=== PATIENT | female | born 2000 | race Caucasian/White ===

== ENCOUNTER 2019-11-16 14:38 | Emergency (ER) | payer OTHER, SELFPAY ==
--- NOTE | 2019-11-16 15:54 | RAD REPORT ---
EXAM DESCRIPTION: CT - Head Brain Wo Cont - 11/16/2019 3:44 pm CLINICAL HISTORY: DIZZINESS Headache, drowsiness COMPARISON: No comparisons TECHNIQUE: All CT scans are performed using dose optimization technique as appropriate and may inclu de automated exposure control or mA/KV adjustment according to patient size. FINDINGS: No intracranial hemorrhage, hydrocephalus or extra-axial fluid collection.No areas of brai n edema or evidence of midline shift. The paranasal sinuses and mastoids are clear. The calvarium is intact. IMPRESSION: No acute intracranial abnormality.
[2019-11-16 16:19] LABS: Urine Blood NEGATIVE (NEG); Urine Glucose NEGATIVE (NEG); Urine Protein NEGATIVE (NEG); Urine Specific Gravity 1.025 (1.005-1.030); Urine pH 5.5 (5.0-7.0)
--- NOTE | 2019-11-16 16:33 | EDPHYS ---
Physician Documentation [facility] Name: Elizabeth Kelly Age: 19 yrs Sex: Female : 2000 Arrival Date: 11/16/2019 Time: 14:42 Bed 15 Private MD: ED Physician Lewis Callahan HPI: 11/15 16:23 This 19 yrs old Female presents to ER via Ambulatory with complaints of kb Dizziness. 16:20 Pt reports she fell a week ago and hit the back of her head. States she had a bump on kb her head that day, but it went away by that night. States she still gets dizzy when she looks in different ways or changes positions with intermittent nausea so she wanted to make sure everything was ok. 16:23 The patient has not experienced similar symptoms in the past. The patient has not kb recently seen a physician. 16:24 The patient presents with dizziness. Onset: The symptoms/episode began/occurred 1 kb week(s) ago. Context: occurred outdoors, [place]. Modifying factors: The symptoms are alleviated by nothing, the symptoms are aggravated by movement of head, standing up, changing position. Associated signs and symptoms: Pertinent positives: nausea, Pertinent negatives: abdominal pain, agitation, ataxia, blurred vision, chest pain, combativeness, confusion, diaphoresis, focal weakness, head injury, headache, near-syncope, numbness, palpitations, , seizure, shortness of breath, syncope, tingling, vomiting. Severity of symptoms: At their worst the symptoms were moderate in the emergency department the symptoms are unchanged. Patient's baseline: Neuro: alert and fully oriented, Motor: no deficits, Ambulation: walks without assistance, Speech: normal. 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 - Social history:: Smoking status: Patient denies any tobacco usage or history of. ROS: 16:14 Constitutional: Negative for fever, chills, and weight loss, Cardiovascular: Negative kb for chest pain, palpitations, and edema, Respiratory: Negative for shortness of breath, cough, wheezing, and pleuritic chest pain, Abdomen/GI: Negative for abdominal pain, vomiting, diarrhea, and constipation. +nausea Back: Negative for injury and pain, MS/Extremity: Negative for injury and deformity, Skin: Negative for injury, rash, and discoloration. 16:14 Neuro: Positive for dizziness, Negative for altered mental status, gait disturbance, headache, hearing loss, loss of consciousness, numbness, seizure activity, speech changes, syncope, near syncope, tingling, tinnitus, tremor, visual changes, weakness. Exam: 16:14 Constitutional: This is a well developed, well nourished patient who is awake, alert, kb and in no acute distress. Head/Face: Normocephalic, atraumatic. Eyes: Pupils equal round and reactive to light, extra-ocular motions intact. Lids and lashes normal. Conjunctiva and sclera are non-icteric and not injected. Cornea within normal limits. Periorbital areas with no swelling, redness, or edema. Chest/axilla: Normal chest wall appearance and motion. Nontender with no deformity. No lesions are appreciated. Cardiovascular: Regular rate and rhythm with a normal S1 and S2. No gallops, murmurs, or rubs. Normal PMI, no JVD. No pulse deficits. Respiratory: Lungs have equal breath sounds bilaterally, clear to auscultation and percussion. No rales, rhonchi or wheezes noted. No increased work of breathing, no retractions or nasal flaring. Abdomen/GI: Soft, non-tender, with normal bowel sounds. No distension or tympany. No guarding or rebound. No evidence of tenderness throughout. Back: No spinal tenderness. No costovertebral tenderness. Full range of motion. Skin: Warm, dry with normal turgor. Normal color with no rashes, no lesions, and no evidence of cellulitis. MS/ Extremity: Pulses equal, no cyanosis. Neurovascular intact. Full, normal range of motion. Neuro: Awake and alert, GCS 15, oriented to person, place, time, and situation. Cranial nerves II-XII grossly intact. Motor strength 5/5 in all extremities. Sensory grossly intact. Cerebellar exam normal. Normal gait. Vital Signs: 14:53 BP 123 / 95; Pulse 91; Resp 18 S; Temp 98.7(TE); Pulse Ox 99% on R/A; Weight 58.97 kg ca1 (R); Height 5 ft. 2 in. (157.48 cm) (R); 15:38 BP 120 / 75; Pulse 73; Resp 16; Temp 99.5(TE); Pulse Ox 100% ; Pain 0/10; ks7 16:37 BP 127 / 87 LA Supine (auto/reg); Pulse 72; Resp 18; Pulse Ox 100% on R/A; dh4 16:37 BP 125 / 89 LA Sitting (auto/reg); Pulse 80; Resp 18; Pulse Ox 100% on R/A; dh4 16:37 BP 115 / 75 LA Standing (auto/reg); Pulse 92; Resp 18; Pulse Ox 98% on R/A; dh4 17:10 BP 113 / 64; Pulse 66; Resp 18; Temp 98.6(TE); Pulse Ox 99% ; Pain 0/10; ks7 14:53 Body Mass Index 23.78 (58.97 kg, 157.48 cm) ca1 MDM: 15:07 Patient medically screened. kb 16:19 Data reviewed: vital signs, nurses notes. Data interpreted: Pulse oximetry: on room air kb is 100 %. Interpretation: normal. Counseling: I had a detailed discussion with the patient and/or guardian regarding: the historical points, exam findings, and any diagnostic results supporting the discharge/admit diagnosis, radiology results, the need for outpatient follow up, a family practitioner, to return to the emergency department if symptoms worsen or persist or if there are any questions or concerns that arise at home. 11/15 16:03 Order name: Urine Dipstick--Ancillary (enter results); Complete Time: 16:26 bd 11/15 15:07 Order name: CT Head Brain wo Cont; Complete Time: 15:56 kb 11/15 16:02 Order name: Urine Dipstick-Ancillary (obtain specimen); Complete Time: 16:16 kb 11/15 16:02 Order name: Orthostatics; Complete Time: 17:10 kb Administered Medications: No medications were administered Disposition: 18:18 Co-signature as Attending Physician, Lewis Callahan MD. rn Disposition: 11/16/19 16:32 Discharged to Home. Impression: Dizziness and giddiness, Superficial injury of head. - Condition is Stable. - Discharge Instructions: Concussion, Adult, [id number], Head Injury, Adult, [id number]. - Medication Reconciliation Form, Thank You Letter, Antibiotic Education, Prescription Opioid Use, Work release form form. - Follow up: Emergency Department; When: As needed; Reason: Worsening of condition. Follow up: Private Physician; When: 2 - 3 days; Reason: Recheck today's complaints, Continuance of care, Re-evaluation by your physician. Signatures: Dispatcher [employer] EDMariana Velazquez, MEAT AND POULTRY INSPECTOR-C MEAT AND POULTRY INSPECTOR-CkLewis Gibbs MD MD rn Mikaelob, Tiana RN RN ca1 Ivet Rubio RN RN ks7 Corrections: (The following items were deleted from the chart) 17:15 16:32 11/16/2019 16:32 Discharged to Home. Impression: Dizziness and giddiness; ks7 Superficial injury of head. Condition is Stable. Forms are Medication Reconciliation Form, Thank You Letter, Antibiotic Education, Prescription Opioid Use. Follow up: Emergency Department; When: As needed; Reason: Worsening of condition. Follow up: Private Physician; When: 2 - 3 days; Reason: Recheck today's complaints, Continuance of care, Re-evaluation by your physician. kb
--- NOTE | 2019-11-16 16:33 | ER ---
Nurse's Notes [facility] Name: Elizabeth Kelly Age: 19 yrs Sex: Female : 2000 Arrival Date: 11/16/2019 Time: 14:42 Bed 15 Private MD: Diagnosis: Dizziness and giddiness;Superficial injury of head Presentation: 11/15 14:53 Chief complaint: Patient states: Fell and hit back of head a week ago, reports LOC. ca1 Vomited x 1 immediately regained consciousness. Did not seek medical consult. 2-3 days ago, nausea x dizziness started. Gait disturbance, head spinning. Coronavirus screen: Patient denies a cough. Patient denies shortness of breath or difficulty breathing. Patient denies measured and/or subjective temperature greater than 100.4F prior to today's visit. Patient denies travel on a cruise ship or to a country the [facility] currently lists as an affected area. Patient denies contact with known and/or suspected case of COVID-19. Proceed with normal triage. Ebola Screen: Patient negative for fever greater than or equal to 101.5 degrees Fahrenheit, and additional compatible Ebola Virus Disease symptoms Patient denies exposure to infectious person. Patient denies travel to an Ebola-affected area in the 21 days before illness onset. No symptoms or risks identified at this time. Initial Sepsis Screen: Does the patient meet any 2 criteria? No. Patient's initial sepsis screen is negative. Does the patient have a suspected source of infection? No. Patient's initial sepsis screen is negative. Risk Assessment: Do you want to hurt yourself or someone else? Patient reports no desire to harm self or others. Onset of symptoms was November 16, 2019. 14:53 Method Of Arrival: Ambulatory ca1 14:53 Acuity: ANTIONE 4 ca1 Triage Assessment: 15:31 General: Appears in no apparent distress. Behavior is calm, cooperative. 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 - Social history:: Smoking status: Patient denies any tobacco usage or history of. Screenin:38 Abuse screen: Denies threats or abuse. Denies injuries from another. Nutritional ks7 screening: No deficits noted. Tuberculosis screening: No symptoms or risk factors identified. Fall Risk None identified. Assessment: 15:39 General: Appears in no apparent distress. Behavior is calm, cooperative. Pain: Denies ks7 pain. Neuro: Reports dizziness, since pt states she fainted and fell in [place] last week d/t heat. She thought she was ok but in the last few days pt states she has dizziness when standing or if she moves her head too fast or looks down. pt denies MOJICA or pain. c/o occasional nausea. Vital Signs: 14:53 BP 123 / 95; Pulse 91; Resp 18 S; Temp 98.7(TE); Pulse Ox 99% on R/A; Weight 58.97 kg ca1 (R); Height 5 ft. 2 in. (157.48 cm) (R); 15:38 BP 120 / 75; Pulse 73; Resp 16; Temp 99.5(TE); Pulse Ox 100% ; Pain 0/10; ks7 16:37 BP 127 / 87 LA Supine (auto/reg); Pulse 72; Resp 18; Pulse Ox 100% on R/A; dh4 16:37 BP 125 / 89 LA Sitting (auto/reg); Pulse 80; Resp 18; Pulse Ox 100% on R/A; dh4 16:37 BP 115 / 75 LA Standing (auto/reg); Pulse 92; Resp 18; Pulse Ox 98% on R/A; dh4 17:10 BP 113 / 64; Pulse 66; Resp 18; Temp 98.6(TE); Pulse Ox 99% ; Pain 0/10; ks7 14:53 Body Mass Index 23.78 (58.97 kg, 157.48 cm) ca1 ED Course: 14:42 Patient arrived in ED. mr 14:57 Triage completed. ca1 14:58 Arm band placed on right wrist. ca1 15:07 Mairana Washburn F[facility]-C [facility]. kb 15:07 Lewis Callahan MD is Attending Physician. kb 15:31 Ivet Rubio, SINDHU is Primary Nurse. ks7 15:[address] ks7 15:38 Patient has correct armband on for positive identification. Bed in low position. Call ks7 light in reach. Side rails up X2. 15:38 No provider procedures requiring assistance completed. ks7 15:45 CT Head Brain wo Cont In Process Unspecified. EDMS 16:16 Urine Dipstick--Ancillary (enter results) Sent. ks7 17:11 Patient did not have IV access during this emergency room visit. ks7 Administered Medications: No medications were administered Outcome: 16:32 Discharge ordered by . olivier 17:11 Discharged to home ambulatory. ks7 17:11 Condition: stable 17:11 Discharge instructions given to patient, Instructed on discharge instructions, Demonstrated understanding of instructions. 17:15 Patient left the ED. ks7 Signatures: Dispatcher [employer] EDMS Mariana Washburn, DIVORCE LAWYER-C DIVORCE LAWYER-Ckb GarciaEdelmira mr Poonam, Tiana, RN RN ca1 Christopher Damon [facility] Ivet Rubio, SINDHU RN ks7 Corrections: (The following items were deleted from the chart) 14:58 14:58 LMP 10/2019 ca1 ca1
[2019-11-17 07:37] VITALS: BP 113/64; TEMP 98.6; O2SAT 99
== END 2019-11-16 17:15 | disposition home or self-care (01) ==
LOC: ER 14:38
DX: S00.90XA Unspecified superficial injury of unspecified part of head, initial encounter (principal); W19.XXXA Unspecified fall, initial encounter; Y93.9 Activity, unspecified; Y92.9 Unspecified place or not applicable
CPT/HCPCS: 70450; 81003; 99284

== ENCOUNTER 2021-02-18 12:38 | Emergency (ER) | payer SELFPAY ==
[2021-02-18 14:00] LABS: Urine Blood Negative (Negative); Urine Glucose Negative (Negative); Urine Protein Negative (Negative)
[2021-02-18] MEDS ORDERED: LORazepam 2 MG/ML VIAL ONE (14:35)
[2021-02-18] MEDS ORDERED: ASPIRIN 81 MG CHEWABLE TABLET ONE (14:35)
[2021-02-18] MEDS ORDERED: FAMOTIDINE 20 MG TAB ONE (14:36)
[2021-02-18] MEDS ORDERED: CASIRIVIMAB/IMDEVIMAB 10 ML VIAL ONE (14:36)
[2021-02-18] MEDS ORDERED: AZITHROMYCIN 250 MG TAB ONE (14:37)
[2021-02-18 14:38] LABS: Absolute Lymphocytes (CBC) 1.2 K/uL (0.7-4.9); Basophils % 0.4 % (0-1.3); Hematocrit 42.7 % (36.0-45.0); Lymphocytes % 25.5 % (15.3-44.8); MPV 9.3 fL (7.6-11.3); RBC Red Blood Cell Count 5.11 M/uL (3.86-4.86)
[2021-02-18] MEDS ORDERED: NA CHLORIDE 0.9% 500 ML ONE (14:48)
[2021-02-18] MEDS ORDERED: NA CHLORIDE 0.9% 1,000 ML ONE (14:48)
[2021-02-18 14:50] LABS: ALT/SGPT 35 U/L (12-78); AST/SGOT 20 U/L (15-37); Albumin 4.6 g/dL (3.4-5.0); Alkaline Phosphatase 64 U/L (45-117); BUN Blood Urea Nitrogen 8 mg/dL (7-18); Bicarbonate 24 mmol/L (21-32); Bilirubin Total 0.3 mg/dL (0.2-1.0); Glucose Level 108 mg/dL (74-106); Potassium 3.7 mmol/L (3.5-5.1); Protein, Total 8.9 g/dL (6.4-8.2); Sodium Level 143 mmol/L (136-145)
--- NOTE | 2021-02-18 15:14 | RAD REPORT ---
EXAM DESCRIPTION: RAD - Chest Single View - 02/18/2021 2:31 pm CLINICAL HISTORY: Congestion;Dyspnea Chest pain. COMPARISON: <Comparisons> FINDINGS: Portable technique limits examination quality. The lungs are grossly clear. The heart is normal in size. No displaced fractures. IMPRESSION: No acute intrathoracic process suspected.
[2021-02-18] MEDS ORDERED: NA CHLORIDE 0.9% 250 ML ONE (15:17)
--- NOTE | 2021-02-18 15:46 | EDPHYS ---
Physician Documentation [facility] Name: Elizabeth Kelly Age: 21 yrs Sex: Female : 2000 Arrival Date: 02/18/2021 Time: 12:40 Bed 4 Private MD: ED Physician Mike Kuhn HPI: 02/18 15:40 This 21 yrs old Female presents to ER via Ambulatory with complaints of josesito Anxiety, covid+. 15:40 The patient has shortness of breath at rest, with light activity. Onset: The josesito symptoms/episode began/occurred 3 day(s) ago. Duration: The symptoms are continuous, and are steadily getting worse. The patient's shortness of breath is aggravated by coughing, is alleviated by rest. covid positive 4 days. Associated signs and symptoms: Pertinent positives: non-productive cough, nausea. Severity of symptoms: At their worst the symptoms were mild in the emergency department the symptoms are unchanged. The patient has not experienced similar symptoms in the past. Historical: - Allergies: 12:53 No Known Allergies; ll1 - PMHx: 12:53 Anxiety; concussion; ll1 - Immunization history:: Client reports having NOT received the Covid vaccine. - Social history:: Smoking status: Patient denies any tobacco usage or history of. - Family history:: not pertinent. ROS: 15:40 Constitutional: Negative for fever, chills, and weight loss, Eyes: Negative for injury, josesito pain, redness, and discharge, ENT: Negative for injury, pain, and discharge, Neck: Negative for injury, pain, and swelling, Cardiovascular: Negative for chest pain, palpitations, and edema, Abdomen/GI: Negative for abdominal pain, nausea, vomiting, diarrhea, and constipation, Back: Negative for injury and pain, : Negative for injury, bleeding, discharge, and swelling, MS/Extremity: Negative for injury and deformity, Skin: Negative for injury, rash, and discoloration, Neuro: Negative for headache, weakness, numbness, tingling, and seizure, Psych: Negative for depression, anxiety, suicide ideation, homicidal ideation, and hallucinations, Allergy/Immunology: Negative for hives, rash, and allergies, Endocrine: Negative for neck swelling, polydipsia, polyuria, polyphagia, and marked weight changes, Hematologic/Lymphatic: Negative for swollen nodes, abnormal bleeding, and unusual bruising. 15:40 Respiratory: Positive for cough, "sounds productive". Exam: 15:40 Constitutional: This is a well developed, well nourished patient who is awake, alert, josesito and in no acute distress. Head/Face: Normocephalic, atraumatic. Eyes: Pupils equal round and reactive to light, extra-ocular motions intact. Lids and lashes normal. Conjunctiva and sclera are non-icteric and not injected. Cornea within normal limits. Periorbital areas with no swelling, redness, or edema. ENT: Nares patent. No nasal discharge, no septal abnormalities noted. Tympanic membranes are normal and external auditory canals are clear. Oropharynx with no redness, swelling, or masses, exudates, or evidence of obstruction, uvula midline. Mucous membranes moist. Neck: Trachea midline, no thyromegaly or masses palpated, and no cervical lymphadenopathy. Supple, full range of motion without nuchal rigidity, or vertebral point tenderness. No Meningismus. Chest/axilla: Normal chest wall appearance and motion. Nontender with no deformity. No lesions are appreciated. Cardiovascular: Regular rate and rhythm with a normal S1 and S2. No gallops, murmurs, or rubs. Normal PMI, no JVD. No pulse deficits. Respiratory: Lungs have equal breath sounds bilaterally, clear to auscultation and percussion. No rales, rhonchi or wheezes noted. No increased work of breathing, no retractions or nasal flaring. Abdomen/GI: Soft, non-tender, with normal bowel sounds. No distension or tympany. No guarding or rebound. No evidence of tenderness throughout. Back: No spinal tenderness. No costovertebral tenderness. Full range of motion. Skin: Warm, dry with normal turgor. Normal color with no rashes, no lesions, and no evidence of cellulitis. MS/ Extremity: Pulses equal, no cyanosis. Neurovascular intact. Full, normal range of motion. Neuro: Awake and alert, GCS 15, oriented to person, place, time, and situation. Cranial nerves II-XII grossly intact. Motor strength 5/5 in all extremities. Sensory grossly intact. Cerebellar exam normal. Normal gait. Psych: Awake, alert, with orientation to person, place and time. Behavior, mood, and affect are within normal limits. 15:40 Musculoskeletal/extremity: DVT Exam: No signs of deep vein thrombosis. no pain, no swelling, no tenderness, negative Homans' sign noted on exam, no appreciated bluish discoloration, no erythema, no increased warmth. Vital Signs: 12:51 BP 129 / 90; Pulse 85; Resp 16; Temp 98.3; Pulse Ox 100% on R/A; Weight 58.97 kg; ll1 Height 5 ft. 2 in. (157.48 cm); Pain 0/10; 14:28 BP 123 / 90; Pulse 89; Resp 20; Pulse Ox 100% ; ch5 15:43 BP 100 / 70; Pulse 73; Resp 18; Pulse Ox 100% ; ch5 16:29 BP 100 / 56; Pulse 86; Resp 14; Pulse Ox 100% on R/A; Pain 0/10; tw5 12:51 Body Mass Index 23.78 (58.97 kg, 157.48 cm) ll1 MDM: 13:06 Patient medically screened. josesito 15:42 Differential diagnosis: Anemia Anxiety Reaction asthma, Bronchitis CHF exacerbation, josesito Chronic Obstructive Pulmonary Disease Myocardial Infarction. Antibiotic administration: The patient is discharged and will get outpatient antibiotics, Zithromax. Differential Diagnosis. The patient's Wells Deep Vein Thrombosis Score was calculated as follows: Total Score: 0-2 Pts- Low Risk. The patient's pulmonary embolism risk score was calculated as follows: Total Score: 0-2 points. This patient was found to be at low risk for a pulmonary embolism by using the Well's assessment criteria. Immunization status:. Data reviewed: vital signs, nurses notes, lab test result(s), radiologic studies, plain films. Data interpreted: lunchroom monitor: rate is 89 beats/min, rhythm is regular, Pulse oximetry: on room air is 100 %. Test interpretation: by ED physician or midlevel provider: plain radiologic studies. Counseling: I had a detailed discussion with the patient and/or guardian regarding: the historical points, exam findings, and any diagnostic results supporting the discharge/admit diagnosis, lab results, radiology results, the need for outpatient follow up, for definitive care, a family practitioner, a boardmarker. 02/18 13:29 Order name: CBC with Diff; Complete Time: 14:46 [facility] 02/18 13:29 Order name: Comprehensive Metabolic Panel; Complete Time: 15:06 josesito 02/18 13:29 Order name: D-Dimer; Complete Time: 14:46 [facility] 02/18 13:29 Order name: Chest Single View XRAY; Complete Time: 15:39 [facility] 02/18 13:59 Order name: Urine Dipstick-Ancillary; Complete Time: 14:46 EDMS 02/18 14:02 Order name: Urine --Ancillary (enter results) 02/18 13:29 Order name: Urine Dipstick-Ancillary (obtain specimen); Complete Time: 14:02 [facility] 02/18 13:29 Order name: Urine Test (obtain specimen); Complete Time: 14:02 [facility] Administered Medications: 14:21 Drug: Pepcid (famotidine) 40 mg Route: PO; ch5 16:28 Follow up: Response: No adverse reaction tw5 14:21 Drug: Aspirin 162 mg Route: PO; ch5 16:28 Follow up: Response: No adverse reaction tw5 14:21 Drug: Zithromax (azithromycin) 500 mg Route: PO; ch5 16:28 Follow up: Response: No adverse reaction tw5 14:21 Drug: Ativan (LORazepam) 0.5 mg Route: IVP; Site: right antecubital; ch5 16:28 Follow up: Response: No adverse reaction tw5 14:27 Drug: NS 0.9% 500 ml Route: IV; Rate: bolus; Site: right antecubital; ch5 16:28 Follow up: Response: No adverse reaction; IV Status: Completed infusion tw5 15:29 Drug: Casirivimab-Imdevimab Dose Pack 120 mg/mL-120 mg/mL (EUA) 1 vials {Note: only ch5 600mg in vial. Told to infuse lucas Rodriguez} Route: IV; Rate: per protocol; Site: right antecubital; 16:28 Follow up: Response: No adverse reaction; IV Status: Completed infusion tw5 Disposition Summary: 02/18/21 15:45 Discharge Ordered Location: Home josesito Problem: new josesito Symptoms: have improved josesito Condition: Stable josesito Diagnosis - Acute upper respiratory infection, unspecified josesito - Coronavirus infection, unspecified josesito - Pneumonia due to SARS-associated coronavirus josesito - Cough josesito Followup: josesito - With: Private Physician - When: 2 - 3 days - Reason: Recheck today's complaints, Continuance of care, Re-evaluation by your physician Followup: josesito - With: Arvind Mandujano MD - When: 2 - 3 days - Reason: Recheck today's complaints, Continuance of care, Re-evaluation by your physician Discharge Instructions: - Discharge Summary Sheet [facility] - Cool Mist Vaporizer josesito - Upper Respiratory Infection, Adult, Araf-oa-Cytu josesito - Cough, Adult, Zdjk-op-Mrul josesito - Aspirin and Your Heart josesito - Cough, Adult josesito - COVID-19 josesito - COVID-19 Frequently Asked Questions [facility] - 10 Things You Can Do to Manage Your COVID-19 Symptoms at Home - [facility] Forms: - Medication Reconciliation Form josesito - Thank You Letter josesito - Antibiotic Education [facility] - Prescription Opioid Use [facility] Prescriptions: - ivermectin 3 mg Oral tablet - take 4 tablet by ORAL route once daily; 12 tablet; Refills: 0, Product [facility] Selection Permitted - Pepcid 20 mg Oral Tablet - take 1 tablet by ORAL route every 12 hours for 30 days; 60 tablet; Refills: 0, [facility] Product Selection Permitted - Singulair 5 mg Oral Tablet - take 1 tablet by ORAL route At bedtime; 20 tablet; Refills: 0, Product [facility] Selection Permitted - Zithromax Z-Ray 250 mg Oral Tablet - take 1 tablet by ORAL route as directed for 5 days Day 1 - take two (2) tablets [facility] one time. Day 2, 3, 4 , 5 take one (1) tablet once daily.; 6 tablet; Refills: 0, Product Selection Permitted Signatures: Dispatcher [employer] Mike Taylor MD MD cha Lewis, Lynsay RN RN ll1 Marino Bowden RN RN ch5 Arlyn Alejandra 5
--- NOTE | 2021-02-18 15:46 | ER ---
Nurse's Notes [facility] Name: Elizabeth Kelly Age: 21 yrs Sex: Female : 2000 Arrival Date: 02/18/2021 Time: 12:40 Bed 4 Private MD: Diagnosis: Acute upper respiratory infection, unspecified;Coronavirus infection, unspecified;Pneumonia due to SARS-associated coronavirus;Cough Presentation: 02/18 12:51 Chief complaint: Patient states: Covid symptoms began 02/13/21. Test positive for covid ll1 on . SOB off/on. States she feels anxious when the SOB gets worse. Coronavirus screen: Vaccine status: Patient reports being unvaccinated. Client denies travel out of the [place] in the last 14 days. cough unrelated to allergies, difficulty breathing, fatigue, shortness of breath, loss of taste or smell, Client presents with at least one sign or symptom that may indicate coronavirus-19. Standard/surgical mask placed on the client. Ebola Screen: Patient denies travel to an Ebola-affected area in the 21 days before illness onset. Initial Sepsis Screen: Does the patient meet any 2 criteria? No. Patient's initial sepsis screen is negative. Does the patient have a suspected source of infection? Yes: Productive cough/pneumonia. Risk Assessment: Do you want to hurt yourself or someone else? Patient reports no desire to harm self or others. Onset of symptoms was February 13, 2021. 12:51 Method Of Arrival: Ambulatory ll1 12:51 Acuity: ANTIONE 4 ll1 14:11 Acuity: ANTIONE 3 iw Historical: - Allergies: 12:53 No Known Allergies; ll1 - PMHx: 12:53 Anxiety; concussion; ll1 - Immunization history:: Client reports having NOT received the Covid vaccine. - Social history:: Smoking status: Patient denies any tobacco usage or history of. - Family history:: not pertinent. Screenin:02 Abuse screen: Denies threats or abuse. Denies injuries from another. Nutritional ch5 screening: No deficits noted. Tuberculosis screening: No symptoms or risk factors identified. Fall Risk None identified. Assessment: 14:02 Reassessment: Feeling anxious. General: Appears uncomfortable, Behavior is anxious, ch5 Reports. Pain: Denies pain. 16:29 Reassessment: Patient states feeling better. Patient states symptoms have improved. tw5 Vital Signs: 12:51 BP 129 / 90; Pulse 85; Resp 16; Temp 98.3; Pulse Ox 100% on R/A; Weight 58.97 kg; ll1 Height 5 ft. 2 in. (157.48 cm); Pain 0/10; 14:28 BP 123 / 90; Pulse 89; Resp 20; Pulse Ox 100% ; ch5 15:43 BP 100 / 70; Pulse 73; Resp 18; Pulse Ox 100% ; ch5 16:29 BP 100 / 56; Pulse 86; Resp 14; Pulse Ox 100% on R/A; Pain 0/10; tw5 12:51 Body Mass Index 23.78 (58.97 kg, 157.48 cm) ll1 ED Course: 12:40 Patient arrived in ED. as 12:53 Triage completed. ll1 12:54 Arm band placed on. ll1 13:06 Mike Kuhn MD is Attending Physician. josesito 13:13 Marino Bowden RN is Primary Nurse. ch5 14:02 Bed in low position. Call light in reach. Side rails up X2. ch5 14:02 No provider procedures requiring assistance completed. Inserted saline lock: 20 gauge ch5 in right antecubital area, using aseptic technique. 14:31 Chest Single View XRAY In Process Unspecified. EDMS 15:44 Arvind Mandujano MD is Referral Physician. josesito 18:42 IV discontinued, intact. ch5 Administered Medications: 14:21 Drug: Pepcid (famotidine) 40 mg Route: PO; ch5 16:28 Follow up: Response: No adverse reaction tw5 14:21 Drug: Aspirin 162 mg Route: PO; ch5 16:28 Follow up: Response: No adverse reaction tw5 14:21 Drug: Zithromax (azithromycin) 500 mg Route: PO; ch5 16:28 Follow up: Response: No adverse reaction tw5 14:21 Drug: Ativan (LORazepam) 0.5 mg Route: IVP; Site: right antecubital; ch5 16:28 Follow up: Response: No adverse reaction tw5 14:27 Drug: NS 0.9% 500 ml Route: IV; Rate: bolus; Site: right antecubital; ch5 16:28 Follow up: Response: No adverse reaction; IV Status: Completed infusion tw5 15:29 Drug: Casirivimab-Imdevimab Dose Pack 120 mg/mL-120 mg/mL (EUA) 1 vials {Note: only ch5 600mg in vial. Told to infuse lucas GEIGER .} Route: IV; Rate: per protocol; Site: right antecubital; 16:28 Follow up: Response: No adverse reaction; IV Status: Completed infusion tw5 Outcome: 15:45 Discharge ordered by MD. bellamy 18:42 Discharged to home ambulatory. [facility] 18:42 Condition: stable 18:42 Discharge instructions given to patient. 18:43 Patient left the ED. 5 Signatures: Dispatcher [employer] EDMS Mike Kuhn MD MD cha Martinez, Amelia as Williams, Irene, RN RN Sheri Mi RN RN [facility] Marino Bowden RN RN 5 Arlyn Alejandra tw5 Corrections: (The following items were deleted from the chart) 16:02 15:00 Casirivimab-Imdevimab Dose Pack 120 mg/mL-120 mg/mL (EUA) 1 vials IV at per 5 protocol in right antecubital ch5
[2021-02-18 19:16] VITALS: TEMP 98.3; O2SAT 100
[2021-02-18 19:20] VITALS: BP 100/56
== END 2021-02-18 18:43 | disposition home or self-care (01) ==
LOC: ER 12:38
DX: U07.1 COVID-19 (principal); J12.82 Pneumonia due to coronavirus disease 2019; J12.81 Pneumonia due to SARS-associated coronavirus; R05.9 Cough, unspecified; J06.9 Acute upper respiratory infection, unspecified
CPT/HCPCS: 36415; 71045; 80053; 81003; 81025; 85025; 85379; 96361; 96365; 96375; 99284; J7030; J7040; J7050; M0243

== ENCOUNTER 2021-05-17 18:09 | Emergency (ER) | payer SELFPAY ==
[2021-05-17] MEDS ORDERED: NA CHLORIDE 0.9% 1,000 ML ONE ×2 (18:42→19:57)
[2021-05-17] MEDS ORDERED: ONDANSETRON 4 MG/2 ML VIAL ONE (18:42)
[2021-05-17 19:05] LABS: Urine Blood Negative (Negative); Urine Glucose Negative (Negative); Urine Protein Negative (Negative); Urine Specific Gravity 1.015 (1.005-1.030)
[2021-05-17 19:23] LABS: Absolute Lymphocytes (CBC) 0.8 K/uL (0.7-4.9); Hematocrit 41.3 % (36.0-45.0); Lymphocytes % 7.4 % (15.3-44.8); MPV 8.7 fL (7.6-11.3); RBC Red Blood Cell Count 4.84 M/uL (3.86-4.86)
[2021-05-17 19:26] LABS: Urine Specific Gravity/Preg 1.015 (1.005-1.030)
--- NOTE | 2021-05-17 19:50 | RAD REPORT ---
EXAM DESCRIPTION: US - Transvaginal OB - 05/17/2021 7:22 pm CLINICAL HISTORY: ABD CRAMPING, COMPARISON: <Comparisons> FINDINGS: A single gestational sac is seen within the uterus. The shape of the sac is within normal limits for gestational age. Within the sac is a single pole with crown-rump length of 3 mm, cor relating to estimated gestational age of 6 weeks 1 day. Estimated date of delivery is 01/09/2022. Heart rate is 110 BPM. 16 mm subchorionic bleed seen along the inferior margin of the sac. The placenta is not yet developed due to early gestational age. The maternal adnexa and ovaries are within normal limits. Normal Doppler blood flow was demonstrated to both ovaries. IMPRESSION: Single live early intrauterine gestation with estimated gestational age of 6 weeks 1 day , JOAN 01/09/2022. 16 mm subchorionic bleed along the inferior margin of the sac.
--- NOTE | 2021-05-17 20:08 | ER ---
Nurse's Notes [facility] Name: Elizabeth Kelly Age: 21 yrs Sex: Female : 2000 Arrival Date: 05/17/2021 Time: 18:14 Bed 20 Private MD: Diagnosis: Vomiting;Vomiting of , unspecified;Less than 8 weeks gestation of ;Other hemorrhage in early -16 mm subchorionic bleed Presentation: 05/17 18:25 Chief complaint: Patient states: 7 weeks . N/V for 3 days. Slight ll1 cough/congestion. G1, P0. Coronavirus screen: Vaccine status: Patient reports being unvaccinated. Client denies travel out of the [place] in the last 14 days. congestion, cough unrelated to allergies, fever, headache, nausea, vomiting. Client presents with at least one sign or symptom that may indicate coronavirus-19. Standard/surgical mask placed on the client. Ebola Screen: Patient denies travel to an Ebola-affected area in the 21 days before illness onset. Initial Sepsis Screen: Does the patient meet any 2 criteria? No. Patient's initial sepsis screen is negative. Does the patient have a suspected source of infection? Yes: Acute abdominal pain. Risk Assessment: Do you want to hurt yourself or someone else? Patient reports no desire to harm self or others. Onset of symptoms was May 15, 2021. 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 - Social history:: Smoking status: Patient denies any tobacco usage or history of. - Family history:: not pertinent. Screenin:45 Abuse screen: Denies threats or abuse. Denies injuries from another. Nutritional eo2 screening: No deficits noted. Tuberculosis screening: No symptoms or risk factors identified. Fall Risk None identified. Assessment: 18:45 General: Appears in no apparent distress. Behavior is calm, cooperative. eo2 18:45 Pain: Denies pain. Neuro: No deficits noted. Level of Consciousness is awake, alert, eo2 obeys commands, Oriented to person, place, time, situation. Cardiovascular: No deficits noted. Denies chest pain, shortness of breath. Respiratory: No deficits noted. Denies cough, shortness of breath. GI: Abdomen is flat, non-distended, Bowel sounds present X 4 quads. Reports nausea, vomiting, since 3 days Patient currently denies vag bleeding. : No deficits noted. Denies burning with urination. 19:00 General: Appears in no apparent distress. uncomfortable, Behavior is calm, cooperative. ll3 Pain: Denies pain. Neuro: No deficits noted. Level of Consciousness is awake, alert, obeys commands, Oriented to person, place, time, situation. Cardiovascular: No deficits noted. Patient's skin is warm and dry. Respiratory: No deficits noted. Respiratory effort is even, unlabored, Respiratory pattern is regular, symmetrical. GI: Abdomen is flat, non-distended, Bowel sounds present X 4 quads. Reports nausea, Patient currently denies vomiting. : No deficits noted. Reports urinary frequency, Denies burning with urination. Derm: Skin is pink, warm \T\ dry. 20:29 Reassessment: ED provider discharged pt prior to completion of diagnostic results and bb medication administration. Vital Signs: 18:25 BP 130 / 81; Pulse 100; Resp 18; Temp 99.9; Pulse Ox 100% ; Weight 61.23 kg; Height 5 ll1 ft. 2 in. (157.48 cm); Pain 5/10; 18:30 BP 125 / 82; Pulse 103; Resp 17; Pulse Ox 100% ; Pain 0/10; eo2 19:00 BP 141 / 86; Pulse 89; Resp 15; Pulse Ox 100% on R/A; ll3 20:00 BP 120 / 80; Pulse 89; Resp 15; Pulse Ox 100% on R/A; ll3 18:25 Body Mass Index 24.69 (61.23 kg, 157.48 cm) ll1 ED Course: 18:14 Patient arrived in ED. mr 18:20 Mike Kuhn MD is Attending Physician. [facility] 18:26 Triage completed. ll1 18:27 Arm band placed on Patient placed in an exam room, on a stretcher. ll1 18:28 Rosalia Vasquez, RN is Primary Nurse. eo2 18:45 Patient has correct armband on for positive identification. Pulse ox on. NIBP on. Door eo2 closed. Noise minimized. Warm blanket given. 18:45 No provider procedures requiring assistance completed. eo2 18:50 Inserted saline lock: 20 gauge in right antecubital area, using aseptic technique. eo2 Blood collected. 19:13 Urine --Ancillary (enter results) Sent. eo2 19:13 Abo/rh Typing Sent. eo2 19:13 Basic Metabolic Panel Sent. eo2 19:14 CBC with Diff Sent. eo2 19:14 Quantitative Hcg Sent. eo2 19:19 Report given to Suellen MANLEY. eo2 19:22 US Transvaginal Ob In Process Unspecified. EDMS 20:07 Adriano Umana MD is Referral Physician. josesito 22:18 IV discontinued, intact, bleeding controlled, No redness/swelling at site. Pressure ll3 dressing applied. Administered Medications: 18:50 Drug: NS 0.9% 1000 ml Route: IV; Rate: 1 bolus; Site: right antecubital; eo2 20:31 Follow up: Response: No adverse reaction; IV Status: Completed infusion; IV Intake: ll3 1000ml 18:50 Drug: Zofran (Ondansetron) 4 mg Route: IVP; Site: right antecubital; eo2 20:31 Follow up: Response: No adverse reaction ll3 20:01 Drug: NS 0.9% 1000 ml Route: IV; Rate: 1 bolus; Site: right antecubital; ll3 21:54 Follow up: Response: No adverse reaction; IV Status: Completed infusion; IV Intake: ll3 1000ml 20:31 Drug: Potassium Effervescent Tablet 25 mEq Route: PO; ll3 20:31 Follow up: Response: No adverse reaction ll3 21:54 Drug: RhoGAM (Human) 300 mcg Route: IM; Site: right gluteus; ll3 22:18 Follow up: Response: No adverse reaction ll3 22:05 CANCELLED (Duplicate Order): Potassium Effervescent Tablet 50 mEq PO once; dissolve in bb 4 ounces of water or juice Intake: 20:31 IV: 1000ml; Total: 1000ml. ll3 21:54 IV: 1000ml; Total: 2000ml. ll3 Outcome: 20:07 Discharge ordered by . josesito 22:18 Discharged to home ambulatory, with family. ll3 22:18 Condition: stable 22:18 Discharge instructions given to patient, family, Instructed on discharge instructions, follow up and referral plans. medication usage, Demonstrated understanding of instructions, follow-up care, medications, Prescriptions given X 2. 22:19 Patient left the ED. ll3 Signatures: Dispatcher [employer] EDMS Mike Kuhn MD MD cha Rivera Edelmira mr HernandezHien, RN RN bb Sheri Mi RN RN ll1 Vivien Helm RN RN ll3 Rosalia Vasquez RN RN eo2
--- NOTE | 2021-05-17 20:08 | EDPHYS ---
Physician Documentation [facility] Name: Elizabeth Kelly Age: 21 yrs Sex: Female : 2000 Arrival Date: 05/17/2021 Time: 18:14 Bed 20 Private MD: ED Physician Mike Kuhn HPI: 05/17 18:48 This 21 yrs old Female presents to ER via Ambulatory with complaints of 7 wks josesito , Vomiting. 18:48 The patient presents to the emergency department with nausea, vomiting, that is josesito continuous. Onset: The symptoms/episode began/occurred 2 day(s) ago. Possible causes: . The symptoms are aggravated by nothing. The symptoms are alleviated by nothing. The estimated gestational age is 7 weeks. course: care: none. Associated signs and symptoms: The patient has no apparent associated signs or symptoms. 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 - Social history:: Smoking status: Patient denies any tobacco usage or history of. - Family history:: not pertinent. ROS: 18:48 Constitutional: Negative for fever, chills, and weight loss, Eyes: Negative for injury, josesito pain, redness, and discharge, ENT: Negative for injury, pain, and discharge, Neck: Negative for injury, pain, and swelling, Cardiovascular: Negative for chest pain, palpitations, and edema, Respiratory: Negative for shortness of breath, cough, wheezing, and pleuritic chest pain, Back: Negative for injury and pain, : Negative for injury, bleeding, discharge, and swelling, MS/Extremity: Negative for injury and deformity, Skin: Negative for injury, rash, and discoloration, Neuro: Negative for headache, weakness, numbness, tingling, and seizure, Psych: Negative for depression, anxiety, suicide ideation, homicidal ideation, and hallucinations, Allergy/Immunology: Negative for hives, rash, and allergies, Endocrine: Negative for neck swelling, polydipsia, polyuria, polyphagia, and marked weight changes, Hematologic/Lymphatic: Negative for swollen nodes, abnormal bleeding, and unusual bruising. 18:48 Abdomen/GI: Positive for nausea, vomiting. Exam: 18:48 Constitutional: This is a well developed, well nourished patient who is awake, alert, josesito and in no acute distress. Head/Face: Normocephalic, atraumatic. Eyes: Pupils equal round and reactive to light, extra-ocular motions intact. Lids and lashes normal. Conjunctiva and sclera are non-icteric and not injected. Cornea within normal limits. Periorbital areas with no swelling, redness, or edema. ENT: Nares patent. No nasal discharge, no septal abnormalities noted. Tympanic membranes are normal and external auditory canals are clear. Oropharynx with no redness, swelling, or masses, exudates, or evidence of obstruction, uvula midline. Mucous membranes moist. Neck: Trachea midline, no thyromegaly or masses palpated, and no cervical lymphadenopathy. Supple, full range of motion without nuchal rigidity, or vertebral point tenderness. No Meningismus. Chest/axilla: Normal chest wall appearance and motion. Nontender with no deformity. No lesions are appreciated. Cardiovascular: Regular rate and rhythm with a normal S1 and S2. No gallops, murmurs, or rubs. Normal PMI, no JVD. No pulse deficits. Respiratory: Lungs have equal breath sounds bilaterally, clear to auscultation and percussion. No rales, rhonchi or wheezes noted. No increased work of breathing, no retractions or nasal flaring. Abdomen/GI: Soft, non-tender, with normal bowel sounds. No distension or tympany. No guarding or rebound. No evidence of tenderness throughout. Back: No spinal tenderness. No costovertebral tenderness. Full range of motion. Skin: Warm, dry with normal turgor. Normal color with no rashes, no lesions, and no evidence of cellulitis. MS/ Extremity: Pulses equal, no cyanosis. Neurovascular intact. Full, normal range of motion. Neuro: Awake and alert, GCS 15, oriented to person, place, time, and situation. Cranial nerves II-XII grossly intact. Motor strength 5/5 in all extremities. Sensory grossly intact. Cerebellar exam normal. Normal gait. Psych: Awake, alert, with orientation to person, place and time. Behavior, mood, and affect are within normal limits. Vital Signs: 18:25 BP 130 / 81; Pulse 100; Resp 18; Temp 99.9; Pulse Ox 100% ; Weight 61.23 kg; Height 5 ll1 ft. 2 in. (157.48 cm); Pain 5/10; 18:30 BP 125 / 82; Pulse 103; Resp 17; Pulse Ox 100% ; Pain 0/10; eo2 19:00 BP 141 / 86; Pulse 89; Resp 15; Pulse Ox 100% on R/A; ll3 20:00 BP 120 / 80; Pulse 89; Resp 15; Pulse Ox 100% on R/A; ll3 18:25 Body Mass Index 24.69 (61.23 kg, 157.48 cm) ll1 MDM: 18:20 Patient medically screened. josesito 18:50 Differential diagnosis: viral gastroenteritis, gastroenteritis. Data reviewed: vital josesito signs, nurses notes, lab test result(s), radiologic studies, ultrasound. 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 Counseling: I had a detailed discussion with the patient and/or guardian regarding: the historical points, exam findings, and any diagnostic results supporting the discharge/admit diagnosis, lab results, radiology results, the need for outpatient follow up, for definitive care, an OB/Gyne specialist. 05/17 18:22 Order name: Abo/rh Typing [facility] 05/17 18:22 Order name: Basic Metabolic Panel; Complete Time: 21:54 [facility] 05/17 21:55 Interpretation: Normal except: NA 132; K 3.4. cp 05/17 18:22 Order name: CBC with Diff; Complete Time: 19:50 [facility] 05/17 21:55 Interpretation: Normal except: WBC 11.20. cp 05/17 18:22 Order name: Quantitative Hcg; Complete Time: 21:54 [facility] 05/17 18:22 Order name: ABO/RH typing; Complete Time: 20:01 [facility] 05/17 19:05 Order name: Urine Dipstick-Ancillary; Complete Time: 19:50 [facility] 05/17 18:22 Order name: US Transvaginal Ob; Complete Time: 20:01 [facility] 05/17 19:07 Order name: Urine --Ancillary (enter results); Complete Time: 19:50 mw2 05/17 20:01 Order name: Rhogam [facility] 05/17 20:02 Order name: Rh Typing [facility] 05/17 20:02 Order name: Antibody Screen [facility] 05/17 20:02 Order name: Fetalscreen [facility] 05/17 20:02 Order name: Cord Rh type [facility] 05/17 21:08 Order name: ABO/RH no charge; Complete Time: 21:54 [facility] 05/17 18:22 Order name: IV Saline Lock; Complete Time: 19:12 [facility] 05/17 18:22 Order name: Labs collected and sent; Complete Time: 19:12 [facility] 05/17 18:22 Order name: NPO; Complete Time: 19:13 [facility] 05/17 18:22 Order name: Urine Dipstick-Ancillary (obtain specimen); Complete Time: 19:13 [facility] 05/17 18:22 Order name: Urine Test (obtain specimen); Complete Time: 19:13 [facility] Administered Medications: 18:50 Drug: NS 0.9% 1000 ml Route: IV; Rate: 1 bolus; Site: right antecubital; eo2 20:31 Follow up: Response: No adverse reaction; IV Status: Completed infusion; IV Intake: ll3 1000ml 18:50 Drug: Zofran (Ondansetron) 4 mg Route: IVP; Site: right antecubital; eo2 20:31 Follow up: Response: No adverse reaction ll3 20:01 Drug: NS 0.9% 1000 ml Route: IV; Rate: 1 bolus; Site: right antecubital; ll3 21:54 Follow up: Response: No adverse reaction; IV Status: Completed infusion; IV Intake: ll3 1000ml 20:31 Drug: Potassium Effervescent Tablet 25 mEq Route: PO; ll3 20:31 Follow up: Response: No adverse reaction ll3 21:54 Drug: RhoGAM (Human) 300 mcg Route: IM; Site: right gluteus; ll3 22:18 Follow up: Response: No adverse reaction ll3 22:05 CANCELLED (Duplicate Order): Potassium Effervescent Tablet 50 mEq PO once; dissolve in bb 4 ounces of water or juice Disposition Summary: 05/17/21 20:07 Discharge Ordered Location: Home josesito Problem: new josesito Symptoms: have improved josesito Condition: Stable josesito Diagnosis - Vomiting josesito - Vomiting of , unspecified josesito - Less than 8 weeks gestation of josesito - Other hemorrhage in early - 16 mm subchorionic bleed josesito Followup: josesito - With: Private Physician - When: 2 - 3 days - Reason: Recheck today's complaints, Continuance of care, Re-evaluation by your physician Followup: josesito - With: - When: 2 - 3 days - Reason: Recheck today's complaints, Re-evaluation by your physician Discharge Instructions: - Discharge Summary Sheet josesito - Hyperemesis Gravidarum josesito - Morning Sickness, [id number] josesito - First Trimester of , [id number] josesito - Care josesito - Vaginal Bleeding During , First Trimester josesito Forms: - Medication Reconciliation Form josesito - Thank You Letter josesito - Antibiotic Education josesito - Prescription Opioid Use josesito - Work release form ll3 Prescriptions: - Diclegis 10-10 mg Oral tablet,delayed release (DR/EC) - take 1 tablet by ORAL route 3 times per day and 2 tablets at bedtime; 60 josesito tablet; Refills: 0, Product Selection Permitted - ondansetron 4 mg Oral tablet,disintegrating - place 1 tablet by TRANSLINGUAL route every 8 hours for 5 days; 20 tablet; josesito Refills: 0, Product Selection Permitted Signatures: Dispatcher [employer] EDMS Mike Kuhn MD MD cha Page, Corey, PA PA cp Sheri Mi RN RN ll1 Vivien Helm RN RN ll3 Rosalia Vasquez RN RN eo2 Hien Hernandez RN bb Corrections: (The following items were deleted from the chart) 22:05 21:55 Potassium Effervescent Tablet 50 mEq PO once; dissolve in 4 ounces of water or bb juice ordered. cp
[2021-05-17 20:14] LABS: BUN Blood Urea Nitrogen 8 mg/dL (7-18); Bicarbonate 25 mmol/L (21-32); Glucose Level 99 mg/dL (74-106); Potassium 3.4 mmol/L (3.5-5.1); Sodium Level 132 mmol/L (136-145)
[2021-05-17 20:23] LABS: HCG, Quantitative 45354 mIU/mL (1-3)
[2021-05-17] MEDS ORDERED: POTASSIUM 25 MEQ EFFERV TAB ONE (20:25)
[2021-05-17 22:53] VITALS: TEMP 99.9; O2SAT 100
[2021-05-17 22:57] VITALS: BP 120/80
== END 2021-05-17 22:19 | disposition home or self-care (01) ==
LOC: ER 18:09
DX: O20.8 Other hemorrhage in early pregnancy (principal); Z3A.01 Less than 8 weeks gestation of pregnancy
CPT/HCPCS: 36415; 76817; 80048; 81003; 81025; 84702; 85025; 86850; 86900; 86901; 96361; 96372; 96374; 99284; J2405; J2790; J7030